=== PATIENT | female | born 1970 | race Two or more races ===

== ENCOUNTER 2024-09-23 11:31 | Outpatient (RCR) | payer BC, SELFPAY ==
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
== END 2024-10-06 23:59 | disposition home or self-care (01) ==
LOC: CPTX 11:31
PROVIDERS: PCP Nurse Practitioner Family; Referring Provider Nurse Practitioner Family; Visit Provider Nurse Practitioner Family
DX: M79.605 Pain in left leg (principal); M25.512 Pain in left shoulder; R53.1 Weakness; S32.82XD Multiple fractures of pelvis without disruption of pelvic ring, subsequent encounter for fracture with routine healing; V89.2XXD Person injured in unspecified motor-vehicle accident, traffic, subsequent encounter
CPT/HCPCS: 97162

== ENCOUNTER 2024-11-06 13:30 | Outpatient (RCR) | payer BC, SELFPAY ==
--- NOTE | 2024-10-08 10:09 | PT.ODAYNRPT ---
PT Outpatient Daily Note OP Daily Note Outpatient Physical Therapy Treatment Date: 10/08/24 Visit Reasons: Pain in left shoulder/leg Subjective: Pt reports she can ambulate short distance without FWW in home. Pt mentioned she would like to have a wheelchair to use for long distance. Objective: Please see flow sheet for ther ex list. Assessment: Interventions given alternating sitting and standing to maximize pt participation. Plan: Assess response to treatment. Length of Time (minutes) of Treatment: 30 Minutes Procedure Charges Therapeutic Exercise 30 minutes: Yes
--- NOTE | 2024-10-12 13:14 | PT.ODAYNRPT ---
PT Outpatient Daily Note OP Daily Note Outpatient Physical Therapy Treatment Date: 10/12/24 Visit Reasons: Pain in left shoulder/leg Subjective: Soreness after last therapy visit Objective: See F/S for therex Assessment: Limited L shoulder AROM into scaption and abduction. Antalgic gait pattern. Plan: Continue per POC Length of Time (minutes) of Treatment: 30 Minutes Procedure Charges Therapeutic Exercise 30 minutes: Yes
--- NOTE | 2024-10-14 10:50 | PT.ODAYNRPT ---
PT Outpatient Daily Note OP Daily Note Outpatient Physical Therapy Treatment Date: 10/14/24 Visit Reasons: Pain in left shoulder/leg Subjective: Pt reports progress but slow. Pt expressed desire to be able to return to work. Objective: Please see flow sheet for ther ex list. Assessment: Pt motivated to participate in PT. Interventions given alternating sitting and standing to maximize pt participation. Plan: Continue with POC. Length of Time (minutes) of Treatment: 30 Minutes Procedure Charges Therapeutic Exercise 30 minutes: Yes
--- NOTE | 2024-10-19 09:55 | PT.ODAYNRPT ---
PT Outpatient Daily Note OP Daily Note Outpatient Physical Therapy Treatment Date: 10/19/24 Visit Reasons: Pain in left shoulder/leg Subjective: Pt c/o L foot pain when she weight bears and points to the SI joints that are painful Objective: See F/S for therex Assessment: Limited L shoulder AROM into scaption and abduction. Antalgic gait pattern. Plan: Continue per POC Length of Time (minutes) of Treatment: 30 Minutes Procedure Charges Therapeutic Exercise 30 minutes: Yes
--- NOTE | 2024-10-21 11:14 | PT.ODAYNRPT ---
PT Outpatient Daily Note OP Daily Note Outpatient Physical Therapy Treatment Date: 10/21/24 Visit Reasons: Pain in left shoulder/leg Subjective: Pt content to share that she can reach over head a little more now, was able to groom her hair this morning. Objective: Please see flow sheet for ther ex list. Assessment: Added squat exercise on total gym machine, pt required verbal and tactile cues to fire quads in order to extend B knees. Plan: Continue with POC. Length of Time (minutes) of Treatment: 30 Minutes Procedure Charges Therapeutic Exercise 30 minutes: Yes
--- NOTE | 2024-10-29 10:09 | PT.ODAYNRPT ---
PT Outpatient Daily Note OP Daily Note Outpatient Physical Therapy Treatment Date: 10/29/24 Visit Reasons: Pain in left shoulder/leg Subjective: Pt c/o L foot pain when she weight bears and points to the SI joints that are painful Objective: See F/S for therex MT: STM plantar aspect L foot and L5-S1 area Assessment: Moderate TTP of L foot and L5-S1. Antalgic gait pattern due to pain with WB on L foot. Plan: Continue per POC Length of Time (minutes) of Treatment: 30 Minutes Procedure Charges Therapeutic Exercise 30 minutes: Yes
--- NOTE | 2024-11-02 13:59 | PT.ODAYNRPT ---
PT Outpatient Daily Note OP Daily Note Outpatient Physical Therapy Treatment Date: 11/02/24 Visit Reasons: Pain in left shoulder/leg Subjective: Pt c/o L foot pain when she weight bears and points to the SI joints that are painful Objective: See F/S for therex Assessment: Moderate TTP of L foot and L5-S1. Antalgic gait pattern due to pain with WB on L foot. Plan: Continue per POC Length of Time (minutes) of Treatment: 30 Minutes Procedure Charges Therapeutic Exercise 30 minutes: Yes
--- NOTE | 2024-11-06 14:14 | PT.ODAYNRPT ---
PT Outpatient Daily Note OP Daily Note Outpatient Physical Therapy Treatment Date: 11/06/24 Visit Reasons: Pain in left shoulder/leg Subjective: Pt reports strength is improving but still has pain and limited distance when walking. Objective: Please see flow sheet for ther ex list. Assessment: Progressing strengthening as tolerated. Plan: Continue with POC. Length of Time (minutes) of Treatment: 30 Minutes Procedure Charges Therapeutic Exercise 30 minutes: Yes
== END 2024-11-06 23:59 | disposition home or self-care (01) ==
LOC: CPTX 13:30
PROVIDERS: PCP Nurse Practitioner Family; Referring Provider Nurse Practitioner Family; Visit Provider Nurse Practitioner Family
DX: M25.512 Pain in left shoulder (principal); M79.605 Pain in left leg; R53.1 Weakness; S32.82XD Multiple fractures of pelvis without disruption of pelvic ring, subsequent encounter for fracture with routine healing; V89.2XXD Person injured in unspecified motor-vehicle accident, traffic, subsequent encounter
CPT/HCPCS: 97110

== ENCOUNTER 2024-12-04 13:30 | Outpatient (RCR) | payer BC, SELFPAY ==
--- NOTE | 2024-11-11 10:37 | PT.ODAYNRPT ---
PT Outpatient Daily Note OP Daily Note Outpatient Physical Therapy Treatment Date: 11/11/24 Visit Reasons: Left arm pain/leg Subjective: Pt reports strength is improving but still has pain and limited distance when walking. Objective: Please see flow sheet for therex Assessment: Pt is ambulating with more symmetrical gait pattern with improved WB on L LE Plan: Continue per POC. Length of Time (minutes) of Treatment: 30 Minutes Procedure Charges Therapeutic Exercise 30 minutes: Yes
--- NOTE | 2024-11-16 13:35 | PT.ODAYNRPT ---
PT Outpatient Daily Note OP Daily Note Outpatient Physical Therapy Treatment Date: 11/16/24 Visit Reasons: Left arm pain/leg Subjective: Pt reports strength is improving but still has pain and limited distance when walking. Objective: See F/S for therex Assessment: Pt is ambulating with more symmetrical gait pattern with improved WB on L LE Plan: Continue per POC. Length of Time (minutes) of Treatment: 30 Minutes Procedure Charges Therapeutic Exercise 30 minutes: Yes
--- NOTE | 2024-11-20 14:12 | PT.ODAYNRPT ---
PT Outpatient Daily Note OP Daily Note Outpatient Physical Therapy Treatment Date: 11/20/24 Visit Reasons: Left arm pain/leg Subjective: Pt reports overall progress but is in more pain today than usual. Pt mentioned she has good and bad days when it comes to pain. Objective: Please see flow sheet for ther ex list. Assessment: Pt demonstrates medial knee collapse with TG squat exercise, corrects post verbal and tactile cues. Plan: Please see flow sheet for ther ex list. Length of Time (minutes) of Treatment: 30 Minutes Procedure Charges Therapeutic Exercise 30 minutes: Yes
--- NOTE | 2024-12-04 14:13 | PT.ODAYNRPT ---
PT Outpatient Daily Note OP Daily Note Outpatient Physical Therapy Treatment Date: 12/04/24 Visit Reasons: Left arm pain/leg Subjective: Pt reports her buttock is sore today. Objective: Please see flow sheet for ther ex list. Assessment: Progression of interventions completed with soreness and fatigue. Plan: Continue with poC. Length of Time (minutes) of Treatment: 30 Minutes Procedure Charges Therapeutic Exercise 30 minutes: Yes
== END 2024-12-04 23:59 | disposition home or self-care (01) ==
LOC: CPTX 13:30
PROVIDERS: PCP Nurse Practitioner Family; Referring Provider Nurse Practitioner Family; Visit Provider Nurse Practitioner Family
DX: M25.512 Pain in left shoulder (principal); M79.605 Pain in left leg; R53.1 Weakness; S32.82XD Multiple fractures of pelvis without disruption of pelvic ring, subsequent encounter for fracture with routine healing; V89.2XXD Person injured in unspecified motor-vehicle accident, traffic, subsequent encounter
CPT/HCPCS: 97110

== ENCOUNTER → 2024-12-14 | Outpatient (CLI) | payer BC, SELFPAY ==
--- NOTE | 2024-12-14 12:47 | XR_ITS ---
Examination: Screening digital mammography, bilateral Computer aided detection 3-D breast Tomosynthesis, bilateral Date and time of exam: 12/14/2024, 12:52 PM Comparisons: 12/13/2023 Indications: Screening Technique: Nonmagnified MLO, CC views of the breasts to been obtained, reconstructed from 3-D Tomosynthesis images. R2 computer aided detection program utilized for evaluation of suspicious masses and/or abnormal calcifications. 3-D Tomosynthesis images obtained. Technologist: Findings: The breasts are heterogeneously dense, which may obscure small masses. No evidence of abnormal masses or suspicious calcifications. Impression: BI-RADS category 1: Negative findings (within normal) Recommend 1 year follow-up mammogram
== END | disposition home or self-care (01) ==
LOC: CDIM 12:39
PROVIDERS: PCP Nurse Practitioner Family; Referring Provider Nurse Practitioner Family; Visit Provider Nurse Practitioner Family
DX: Z12.31 Encounter for screening mammogram for malignant neoplasm of breast (principal); R92.313 Mammographic fatty tissue density, bilateral breasts
CPT/HCPCS: 77063; 77067

== ENCOUNTER 2025-01-04 15:30 | Outpatient (RCR) | payer BC, SELFPAY ==
--- NOTE | 2024-12-14 16:47 | PT.ODS1RPT ---
PT OP Progress/Discharge Note Date of Service: 12/14/24 Progress Note/DC Note Progress Note/Discharge Note: Progress Note Patient Information Visit Reasons: Left arm/leg pain Service Continue Service or Discharge: Continue Service Status Subjective: Pt reports LBP attributed to SI joint screws. She had been feeling better until recently with increased LBP. Objective: L shoulder AROM: FF: 125 deg Abd: 105 deg Hip strength Adduction: 4/5 HIp flexion: 4/5 LE strength: quads: 4/5 HS: 4/5 Assessment: Pt has attended 13 Rx sessions with good progress with shoulder goals and LB goals until recent setback. Pt would benefit from continued therapy to reduce LBP and improve LE strength to meet goals. Plan: POC will 12/20/24 and we will need provider's signature on this note to extend certification dates to 03/22/25 to complete visits or another therapy order. Procedure Charges Therapeutic Exercise 30 minutes: Yes
--- NOTE | 2024-12-17 15:35 | PT.ODS1RPT ---
PT OP Progress/Discharge Note Date of Service: 12/17/24 Progress Note/DC Note Progress Note/Discharge Note: Progress Note Patient Information Visit Reasons: Left arm/leg pain Service Continue Service or Discharge: Continue Service Status Subjective: Pt reports LBP attributed to SI joint screws. She had been feeling better until recently with increased LBP. Objective: L shoulder AROM: FF: 125 deg Abd: 105 deg Hip strength Adduction: 4/5 HIp flexion: 4/5 LE strength: quads: 4/5 HS: 4/5 Gait pattern: antalgic Assessment: Pt has attended Rx sessions with good progress with shoulder goals and LB goals until recent setback. The SI joint region hurts which limits WB tolerance and gait pattern. Pt would benefit from continued therapy to reduce LBP and improve LE strength to meet goals. Plan: POC will 12/20/24 and we will need provider's signature on this note to extend certification dates to 03/22/25 to complete visits or another therapy order. Procedure Charges Therapeutic Exercise 30 minutes: Yes
--- NOTE | 2024-12-31 18:36 | PT.ODAYNRPT ---
PT Outpatient Daily Note OP Daily Note Outpatient Physical Therapy Treatment Date: 12/31/24 Visit Reasons: Left arm/leg pain Subjective: Overall better but LB still hurts Objective: See F/S for therex Assessment: Good therex tolerance with lunging and partial body weight squatting Plan: Continue per POC Length of Time (minutes) of Treatment: 30 Minutes Procedure Charges Therapeutic Exercise 30 minutes: Yes
--- NOTE | 2025-01-04 16:10 | PT.ODAYNRPT ---
PT Outpatient Daily Note OP Daily Note Outpatient Physical Therapy Treatment Date: 01/04/25 Visit Reasons: Left arm/leg pain Subjective: Overall better but LB still hurts Objective: See F/S for therex Assessment: Good therex tolerance with lunging and partial body weight squatting but she has antalgic gait pattern due to LBP around SI joints. Plan: Continue per POC Length of Time (minutes) of Treatment: 30 Minutes Procedure Charges Therapeutic Exercise 30 minutes: Yes
== END 2025-01-04 23:59 | disposition home or self-care (01) ==
LOC: CPTX 15:30
PROVIDERS: PCP Nurse Practitioner Family; Referring Provider Nurse Practitioner Family; Visit Provider Nurse Practitioner Family
DX: M25.512 Pain in left shoulder (principal); M79.605 Pain in left leg; R53.1 Weakness; S32.82XD Multiple fractures of pelvis without disruption of pelvic ring, subsequent encounter for fracture with routine healing; V89.2XXD Person injured in unspecified motor-vehicle accident, traffic, subsequent encounter
CPT/HCPCS: 97110

== ENCOUNTER 2025-01-28 15:30 | Outpatient (RCR) | payer BC, SELFPAY ==
--- NOTE | 2025-01-11 16:41 | PT.ODAYNRPT ---
PT Outpatient Daily Note OP Daily Note Outpatient Physical Therapy Treatment Date: 01/11/25 Visit Reasons: Left arm/Leg pain Subjective: Overall better but LB still hurts Objective: See F/S for therex Assessment: Good therex tolerance with lunging and partial body weight squatting but she has antalgic gait pattern due to LBP around SI joints. Plan: Continue per POC Length of Time (minutes) of Treatment: 30 Minutes Procedure Charges Therapeutic Exercise 30 minutes: Yes
--- NOTE | 2025-01-15 16:06 | PT.ODAYNRPT ---
PT Outpatient Daily Note OP Daily Note Outpatient Physical Therapy Treatment Date: 01/15/25 Visit Reasons: Left arm/Leg pain Subjective: Pt reports her arm is doing better but still has pain in the hips and back area. Objective: Please see flow sheet for ther ex list. Assessment: Progression of interventions completed with good tolerance, applied cold pack at end of session. Plan: Continue with pOC. Length of Time (minutes) of Treatment: 30 Minutes Procedure Charges Therapeutic Exercise 30 minutes: Yes
--- NOTE | 2025-01-25 17:13 | PT.ODAYNRPT ---
PT Outpatient Daily Note OP Daily Note Outpatient Physical Therapy Treatment Date: 01/25/25 Visit Reasons: Left arm/Leg pain Subjective: Overall better but LB still hurts Objective: See F/S for therex Assessment: Good therex tolerance with lunging and partial body weight squatting but she has antalgic gait pattern due to LBP around SI joints. Plan: Continue per POC Length of Time (minutes) of Treatment: 30 Minutes Procedure Charges Therapeutic Exercise 30 minutes: Yes
--- NOTE | 2025-01-28 18:21 | PT.ODAYNRPT ---
PT Outpatient Daily Note OP Daily Note Outpatient Physical Therapy Treatment Date: 01/28/25 Visit Reasons: Left arm/Leg pain Subjective: Overall better but LB still hurts Objective: See F/S for therex Assessment: Good therex tolerance with lunging and partial body weight squatting but she has antalgic gait pattern due to LBP around SI joints. Plan: Continue per POC Length of Time (minutes) of Treatment: 30 Minutes Procedure Charges Therapeutic Exercise 30 minutes: Yes
== END 2025-02-03 23:59 | disposition home or self-care (01) ==
LOC: CPTX 15:30
PROVIDERS: PCP Nurse Practitioner Family; Referring Provider Nurse Practitioner Family; Visit Provider Nurse Practitioner Family
DX: M79.605 Pain in left leg (principal); M25.512 Pain in left shoulder; R53.1 Weakness; S32.82XD Multiple fractures of pelvis without disruption of pelvic ring, subsequent encounter for fracture with routine healing; V89.2XXD Person injured in unspecified motor-vehicle accident, traffic, subsequent encounter
CPT/HCPCS: 97110

== ENCOUNTER 2025-03-03 15:30 | Outpatient (RCR) | payer BC, SELFPAY ==
--- NOTE | 2025-02-05 15:36 | PT.ODAYNRPT ---
PT Outpatient Daily Note OP Daily Note Outpatient Physical Therapy Treatment Date: 02/05/25 Visit Reasons: Left arm pain/leg pain Subjective: Pt reports danae has been less lately, feels overall progress. Pt mentioned she dad follow up with doctor who told her the pain she is feeling is not normal, pt will likely be receiving injections soon. Objective: Please see flow sheet for ther ex list. Assessment: Progression of strengthening intervention completed with good tolerance. Plan: Continue with poC. Length of Time (minutes) of Treatment: 30 Minutes Procedure Charges Therapeutic Exercise 30 minutes: Yes
--- NOTE | 2025-02-08 16:11 | PT.ODAYNRPT ---
PT Outpatient Daily Note OP Daily Note Outpatient Physical Therapy Treatment Date: 02/08/25 Visit Reasons: Left arm pain/leg pain Subjective: Pt reports overall she notices progress, has less pain and her walking has improved. Objective: Please see flow sheet for ther ex list. Assessment: Pt performed SLB on L LE exercise, pt can hold for ~4 seconds with minimal sway. Plan: Continue with poC, pt has 2 visits left. Length of Time (minutes) of Treatment: 30 Minutes Procedure Charges Therapeutic Exercise 30 minutes: Yes
--- NOTE | 2025-02-18 18:02 | PT.ODAYNRPT ---
PT Outpatient Daily Note OP Daily Note Outpatient Physical Therapy Treatment Date: 02/18/25 Visit Reasons: Left arm pain/leg pain Subjective: Overall better and walking faster Objective: See F/S for therex Assessment: Good therex tolerance with lunging and partial body weight squatting and walking faster with less lateral sway Plan: Continue per POC Length of Time (minutes) of Treatment: 30 Minutes Procedure Charges Therapeutic Exercise 30 minutes: Yes
--- NOTE | 2025-03-03 18:50 | PT.ODS1RPT ---
PT OP Progress/Discharge Note Date of Service: 03/03/25 Progress Note/DC Note Progress Note/Discharge Note: DC Note Patient Information Visit Reasons: Left arm pain/leg pain Service Continue Service or Discharge: Discharge Discharge Date: 03/03/25 Status Subjective: Overall much better since starting therapy with less LBP, improved gait and L shoulder ROM Objective: L shoulder AROM: FF: 145 deg Abd: 135 deg Hip strength Adduction: 4/5 HIp flexion: 4/5 LE strength: quads: 4/5 HS: 4/5 Gait pattern: symmetrical Assessment: Pt has attended 24/24 Rx sessions with good progress to meet shoulder goals and LB goals. Pt has improved L LE strength to 4/5 and L shoulder ROM to over 130 deg FF and abduction. Pt is ambulating with symmetrical gait pattern without assistive device. to meet those goals. Plan: D/C with HEP Procedure Charges Therapeutic Exercise 30 minutes: Yes
== END 2025-03-06 23:59 | disposition home or self-care (01) ==
LOC: CPTX 15:30
PROVIDERS: PCP Nurse Practitioner Family; Referring Provider Nurse Practitioner Family; Visit Provider Nurse Practitioner Family
DX: M25.512 Pain in left shoulder (principal); M79.605 Pain in left leg; R53.1 Weakness; S32.82XD Multiple fractures of pelvis without disruption of pelvic ring, subsequent encounter for fracture with routine healing; V89.2XXD Person injured in unspecified motor-vehicle accident, traffic, subsequent encounter
CPT/HCPCS: 97110

== ENCOUNTER → 2025-07-23 | Outpatient (CLI) | payer BC, SELFPAY ==
--- NOTE | 2025-07-23 11:26 | XR_ITS ---
Examination: Diagnostic digital mammography, unilateral, left Computer aided detection 3-D breast Tomosynthesis, unilateral Date and time of exam: 07/23/2025, 11:32 a.m. Comparisons: April 2021 through December 2024 Indications: Left breast pain Technique: Nonmagnified MLO, CC views of the left breast have been obtained, reconstructed from 3-D Tomosynthesis images. R2 computer aided detection program utilized for evaluation of suspicious masses and/or abnormal calcifications. 3-D Tomosynthesis images obtained. Technologist: Findings: The breasts are heterogeneously dense, which may obscure small masses. No evidence of abnormal masses or suspicious calcifications. Impression: BI-RADS category 1: Negative findings (within normal) Recommend 1 year follow-up mammogram
--- NOTE | 2025-07-23 12:00 | XR_ITS ---
Examination: Breast ultrasound, unilateral, left Date and time of exam: July 23, 2025, 1113 hours INDICATIONS: Upper breast lump 1 year Technique: Real-time leblanc scale ultrasonographic imaging performed left breast including all 4 quadrants as well as nipple retroareolar and axillary region. Findings: 11:00 cyst 12 x 9 mm Smaller cyst No solid nodules IMPRESSION: BI-RADS Category 2: Benign findings
== END | disposition home or self-care (01) ==
PROVIDERS: PCP Nurse Practitioner Family; Referring Provider Nurse Practitioner Family; Visit Provider Nurse Practitioner Family
DX: R92.312 Mammographic fatty tissue density, left breast (principal)
CPT/HCPCS: 76641; 77061; 77065; G0279

== ENCOUNTER → 2025-08-25 | Outpatient (CLI) | payer BC, SELFPAY ==
--- NOTE | 2025-08-25 12:00 | XR_ITS ---
Examination: Bone densitometry Date and time of exam: August 25, 2025, 1217 hours INDICATIONS: Menopause age 49 levothyroxine 15 years Technique: Lumbar spine and hip total bone mineralization values of an calculated. Peak reference and age match control results have been displayed. Findings: Lumbar spine total bone mineralization is 0.908 gm/cm2. This is 1.3 standard deviations below peak reference. This is 1.2 standard deviations below age-matched controls. Hip total bone mineralization is 0.996 gm/cm2 This is 0.3 standard deviations above peak reference. This is 1.0 standard deviations above age-matched controls Impression: There is osteopenia based on lumbar spine measurements. There is osteopenia based on hip measurements
== END | disposition home or self-care (01) ==
LOC: CDIM 11:44
PROVIDERS: Referring Provider Nurse Practitioner Family; Visit Provider Nurse Practitioner Family
DX: M85.89 Other specified disorders of bone density and structure, multiple sites (principal)
CPT/HCPCS: 77080